=== PATIENT | male | born 1980 | race Caucasian/White ===

== ENCOUNTER 2016-08-28 00:43 | Emergency (ER) | payer SELFPAY ==
[~2016-08-28] VITALS: Ht 182.9 cm; Wt 75.0 kg
[~2016-08-28 00:43] MED LIST: PERC5TAB12 PO
[2016-08-28] MEDS ORDERED: SODIUM CHLOR 0.9% 1000 ML INJ 1,000 ML IV ONE (01:20)
[2016-08-28] MEDS ORDERED: SODIUM CHLORIDE 0.9% FLUSH 10 ML FLUSH IVF PRN (01:30)
[2016-08-28] MEDS ORDERED: LORazepam 2 MG/ML VIAL IVP ONE (01:30)
[2016-08-28 01:40] VITALS: BP 133/75; PULSE 75; RESP 16; TEMP 98.3; O2SAT 96
[2016-08-28 01:43] LABS: AUTOMATED NEUTROPHIL # 4.5 TH/MM3 (1.8-7.7); BASOPHIL % 0.4 % (0.0-2.0); EOSINOPHIL # 0.2 TH/MM3 (0-0.4); EOSINOPHIL % 3.1 % (0.0-4.0); HEMATOCRIT 43.3 % (39.0-51.0); HEMO FLAGS DIFF FINAL; LYMPH % 33.4 % (9.0-44.0); LYMPHOCYTE # 2.6 TH/MM3 (1.0-4.8); MEAN CELL VOLUME 84.1 FL (80.0-100.0); MEAN CORPUSCULAR HEMOGLOBIN 28.4 PG (27.0-34.0); MEAN CORPUSCULAR HGB CONC 33.7 % (32.0-36.0); MONO % 5.3 % (0.0-8.0); NEUT % 57.8 % (16.0-70.0); PLATELET COUNT 213 TH/MM3 (150-450); RED BLOOD COUNT 5.15 MIL/MM3 (4.50-5.90); WHITE BLOOD COUNT 7.8 TH/MM3 (4.0-11.0)
[2016-08-28 01:57] VITALS: RESP 20
[2016-08-28 01:57] LABS: ANION GAP 5 MEQ/L (5-15); BICARBONATE 29.3 MEQ/L (21.0-32.0); BLOOD UREA NITROGEN 13 MG/DL (7-18); CHLORIDE 108 MEQ/L (98-107); GLOMERULAR FILTRATION RATE 86 ML/MIN (>89); POTASSIUM 4.1 MEQ/L (3.5-5.1); SODIUM (NA) 142 MEQ/L (136-145)
[2016-08-28 02:16] LABS: AMPHETAMINE, URINE POS (NEG); BARBITURATES, URINE NEG (NEG); COCAINE, URINE NEG (NEG)
--- NOTE | 2016-08-28 02:59 | PD ---
HPI Chief Complaint: Alcohol/Drug Intoxication Time Seen by Provider: 01:20 Travel History International Travel<30 days: No Contact w/Intl Traveler<30days: No Traveled to known affect area: No History of Present Illness HPI 36-year-old male arrives after abusing drugs intravenously including methamphetamines and opioids. He was found intoxicated in public and arrives as a [place]. He has no medical complaint tonight. Location neuropsychiatric. Severity moderate. He has no homicidal or suicidal ideation. PFSH Past Medical History Bipolar Disorder: Yes Anxiety: Yes Depression: Yes Diminished Hearing: No Immunizations Current: Yes Tetanus Vaccination: > 5 Years Influenza Vaccination: No Social History Alcohol Use: Yes (BINGE DRINKING AT LEAST ONCE A WEEK) Tobacco Use: Yes (1/2 PPD) Substance Use: Yes (ETOH increasing; Nicotine 0.5PPD; Crack Cocaine.) Allergies-Medications (Allergen,Severity, Reaction): Coded Allergies: No Known Allergies (Verified , 08/28/16) Reported Meds & Prescriptions Reported Meds & Active Scripts Active Review of Systems Except as stated in HPI: all other systems reviewed are Neg General / Constitutional: No: Fever Psychiatric: Positive: Substance Abuse Physical Exam Narrative GENERAL: 36-year-old male well-nourished well-developed mildly agitated SKIN: Focused skin assessment warm/dry. IV drug abuse track sheehan in the antecubital fossa on the right side. HEAD: Atraumatic. Normocephalic. EYES: Pupils equal and round. No scleral icterus. No injection or drainage. ENT: No nasal bleeding or discharge. Mucous membranes pink and moist. NECK: Trachea midline. No JVD. CARDIOVASCULAR: Regular rate and rhythm. There is no murmur. RESPIRATORY: No accessory muscle use. Clear to auscultation. Breath sounds equal bilaterally. GASTROINTESTINAL: Abdomen soft, non-tender, nondistended. Hepatic and splenic margins not palpable. MUSCULOSKELETAL: No obvious deformities. No clubbing. No cyanosis. No edema. NEUROLOGICAL: Awake and alert. No obvious cranial nerve deficits. Motor grossly within normal limits. Normal speech. PSYCHIATRIC: Well-nourished well-developed. Cooperative. Data Data Last Documented VS Vital Signs Date Time Temp Pulse Resp B/P Pulse Ox O2 Delivery O2 Flow Rate FiO2 08/28/16 01:57 20 08/28/16 01:40 98.3 75 133/75 96 Vital signs reviewed Orders Basic Metabolic Panel (Bmp) (08/28/16 01:20) Complete Blood Count With Diff (08/28/16 01:20) Iv Access Insert/Monitor (08/28/16 01:20) Cath For Specimen (08/28/16 01:20) Ecg Monitoring (08/28/16 01:20) Oximetry (08/28/16 01:20) Lorazepam Inj (Ativan Inj) (08/28/16 01:30) Sodium Chloride 0.9% Flush (Ns Flush) (08/28/16 01:30) Sodium Chlor 0.9% 1000 Ml Inj (Ns 1000 M (08/28/16 01:20) Drug Screen, Random Urine (08/28/16 01:20) Alcohol (Ethanol) (08/28/16 01:20) Labs Laboratory Tests Test 08/28/16 08/28/16 01:30 01:50 White Blood Count 7.8 TH/MM3 Red Blood Count 5.15 MIL/MM3 Hemoglobin 14.6 GM/DL Hematocrit 43.3 % Mean Corpuscular Volume 84.1 FL Mean Corpuscular Hemoglobin 28.4 PG Mean Corpuscular Hemoglobin 33.7 % Concent Red Cell Distribution Width 12.0 % Platelet Count 213 TH/MM3 Mean Platelet Volume 7.1 FL Neutrophils (%) (Auto) 57.8 % Lymphocytes (%) (Auto) 33.4 % Monocytes (%) (Auto) 5.3 % Eosinophils (%) (Auto) 3.1 % Basophils (%) (Auto) 0.4 % Neutrophils # (Auto) 4.5 TH/MM3 Lymphocytes # (Auto) 2.6 TH/MM3 Monocytes # (Auto) 0.4 TH/MM3 Eosinophils # (Auto) 0.2 TH/MM3 Basophils # (Auto) 0.0 TH/MM3 CBC Comment DIFF FINAL Differential Comment Sodium Level 142 MEQ/L Potassium Level 4.1 MEQ/L Chloride Level 108 MEQ/L Carbon Dioxide Level 29.3 MEQ/L Anion Gap 5 MEQ/L Blood Urea Nitrogen 13 MG/DL Creatinine 0.99 MG/DL Estimat Glomerular Filtration 86 ML/MIN Rate Random Glucose 91 MG/DL Calcium Level 8.4 MG/DL Ethyl Alcohol Level LESS THAN 3 MG/DL Urine Opiates Screen POS Urine Barbiturates Screen NEG Urine Amphetamines Screen POS Urine Benzodiazepines Screen POS Urine Cocaine Screen NEG Urine Cannabinoids Screen POS MDM Medical Decision Making Medical Screen Exam Complete: Yes Emergency Medical Condition: Yes Medical Record Reviewed: Yes Differential Diagnosis Opioids, amphetamines, alcohol abuse, marijuana abuse, electrolyte imbalance Narrative Course CBC & BMP Diagram 08/28/16 01:30 Urine drug screen is positive for amphetamines opioids and benzodiazepines and cannabinoids Alcohol is negative Patient has no medical complaint. He has received IV fluids and Ativan. He has been rest comfortably in the ER. There is no murmur and I doubt the patient has endocarditis although ultimately he may develop valvular disease from continued IV drug abuse. Patient ready for discharge. Diagnosis Primary Impression: IVDU (intravenous drug user) Additional Impression: Polysubstance abuse Referrals: [facility] days Additional Instructions: You have a choice when it comes to health care, and we are glad that you chose [facility]. Hopefully, we have met your expectations on today's visit. You are welcome to return to [facility] at any time, as we are committed to meeting the health care needs of our community. Med/Other Pt SpecificInfo: No Change to Meds Disposition: 01 DISCHARGE HOME Condition: Otto Warner MD Aug 28, 2016 02:59
[2016-08-28 03:58] VITALS: BP 111/64; PULSE 56; RESP 15; O2SAT 99
== END 2016-08-28 06:19 | disposition home or self-care (01) ==
LOC: NEPE 00:43
DX: F19.10 Other psychoactive substance abuse, uncomplicated (principal); F17.200 Nicotine dependence, unspecified, uncomplicated; Z86.59 Personal history of other mental and behavioral disorders
CPT/HCPCS: 80048; 80307; 85025; 99284; J7030

== ENCOUNTER 2017-07-05 00:59 | Emergency (ER) | payer SELFPAY ==
[~2017-07-05] VITALS: Ht 177.8 cm; Wt 80.0 kg
[2017-07-05 01:27] VITALS: BP 113/55; PULSE 50; RESP 16; TEMP 98.1; O2SAT 98
[2017-07-05] MEDS ORDERED: SODIUM CHLOR 0.9% 1000 ML INJ 1,000 ML IV ONE (01:27)
[2017-07-05] MEDS ORDERED: SODIUM CHLORIDE 0.9% FLUSH 10 ML FLUSH IVF PRN (01:30)
[2017-07-05 01:32] VITALS: O2SAT 100
[2017-07-05 01:48] LABS: AUTOMATED NEUTROPHIL # 3.3 TH/MM3 (1.8-7.7); BASOPHIL % 0.5 % (0.0-2.0); EOSINOPHIL # 0.2 TH/MM3 (0-0.4); HEMATOCRIT 42.8 % (39.0-51.0); HEMOGLOBIN 14.6 GM/DL (13.0-17.0); LYMPH % 44.6 % (9.0-44.0); LYMPHOCYTE # 3.3 TH/MM3 (1.0-4.8); MEAN CELL VOLUME 86.5 FL (80.0-100.0); MEAN CORPUSCULAR HEMOGLOBIN 29.6 PG (27.0-34.0); MEAN CORPUSCULAR HGB CONC 34.2 % (32.0-36.0); MEAN PLATELET VOLUME 7.1 FL (7.0-11.0); MONO % 7.3 % (0.0-8.0); MONOCYTE # 0.5 TH/MM3 (0-0.9); NEUT % 44.6 % (16.0-70.0); PLATELET COUNT 257 TH/MM3 (150-450); RED BLOOD COUNT 4.96 MIL/MM3 (4.50-5.90); RED CELL DISTRIBUTION WIDTH 12.8 % (11.6-17.2); WHITE BLOOD COUNT 7.3 TH/MM3 (4.0-11.0)
[2017-07-05 01:59] LABS: PROTHROMBIN TIME - PATIENT 10.2 SEC (9.8-11.6)
[2017-07-05 02:04] LABS: ALBUMIN 3.4 GM/DL (3.4-5.0); ALT (GPT) 43 U/L (12-78); AST (GOT) 23 U/L (15-37); BICARBONATE 28.2 MEQ/L (21.0-32.0); BLOOD UREA NITROGEN 16 MG/DL (7-18); CALCIUM 8.4 MG/DL (8.5-10.1); CHLORIDE 110 MEQ/L (98-107); CREATININE 1.28 MG/DL (0.60-1.30); GLOMERULAR FILTRATION RATE 64 ML/MIN (>89); GLUCOSE,RANDOM 98 MG/DL (74-106); SODIUM (NA) 142 MEQ/L (136-145)
[2017-07-05 02:08] LABS: ACETAMINOPHEN LESS THAN 2.0 MCG/ML (10.0-30.0); ALKALINE PHOSPHATASE 74 U/L (45-117); TOTAL BILIRUBIN ADULT 0.4 MG/DL (0.2-1.0); TOTAL PROTEIN 7.1 GM/DL (6.4-8.2)
[2017-07-05 02:10] LABS: BILIRUBIN, URINE NEG (NEG); BLOOD, URINE NEG (NEG); GLUCOSE,URINE NEG (NEG); HYALINE CAST, URINE 3 /lpf (RARE); KETONE, URINE NEG (NEG); MUCUS URINE FEW /lpf (OCC); NITRITE,URINE NEG (NEG); URINE COLOR YELLOW (YELLW/STRAW); URINE LEUKOCYTE ESTERASE NEG (NEG)
--- NOTE | 2017-07-05 02:11 | RADRPT ---
EXAM DATE/TIME: 07/05/2017 01:39 [facility] COMPARISON: No previous studies available for comparison. INDICATIONS : Short of breath. MEDICAL HISTORY : None. SURGICAL HISTORY : None. ENCOUNTER: Initial ACUITY: 1 day PAIN SCORE: 0/10 LOCATION: Bilateral chest FINDINGS: A single view of the chest demonstrates the lungs to be symmetrically aerated without evidence of mas s, infiltrate or effusion. The cardiomediastinal contours are unremarkable. Osseous structures are intact. CONCLUSION: 1. No acute cardiopulmonary disease. Rohan So MD on July 05, 2017 at 2:09 Board Certified Radiologist. This report was verified electronically.
--- NOTE | 2017-07-05 03:03 | RADRPT ---
EXAM DATE/TIME: 07/05/2017 02:20 [facility] COMPARISON: No previous studies available for comparison. INDICATIONS : Altered mental status. RADIATION DOSE: 64.63 CTDIvol (mGy) MEDICAL HISTORY : None SURGICAL HISTORY : None. ENCOUNTER: Initial ACUITY: 1 day PAIN SCALE: 0/10 LOCATION: cranial TECHNIQUE: Multiple contiguous axial images were obtained of the head. Using automated exposure control and adj ustment of the mA and/or kV according to patient size, radiation dose was kept as low as reasonably a chievable to obtain optimal diagnostic quality images. DICOM format image data is available electro nically for review and comparison. FINDINGS: CEREBRUM: The ventricles are normal for age. No evidence of midline shift, mass lesion, hemorrhage or acute in farction. No extra-axial fluid collections are seen. POSTERIOR FOSSA: The cerebellum and brainstem are intact. The 4th ventricle is midline. The cerebellopontine angle i s unremarkable. EXTRACRANIAL: The visualized portion of the orbits is intact. Small mucous retention cyst in the inferior left maxi llary sinus. SKULL: The calvaria is intact. No evidence of skull fracture. CONCLUSION: 1. No acute intracranial abnormality. Rohan So MD on July 05, 2017 at 3:01 Board Certified Radiologist. This report was verified electronically.
--- NOTE | 2017-07-05 03:20 | PD ---
HPI Chief Complaint: OD/ Ingestion Time Seen by Provider: : Travel History International Travel<30 days: No Contact w/Intl Traveler<30days: No Traveled to known affect area: No History of Present Illness HPI 37-year-old male presents to the emergency department by EMS transport from from [place] where he was found unresponsive in his car with his girlfriend. Girlfriend refused transport. Patient was administered 1.2 mg of Narcan with minimal response. Patient admits to taking heroin. PFSH Past Medical History Narrative Medical Bipolar disorder anxiety depression substance use nursing notes reviewed Bipolar Disorder: Yes Anxiety: Yes Depression: Yes Diminished Hearing: No Immunizations Current: Yes Tetanus Vaccination: < 5 Years Influenza Vaccination: No Past Surgical History Surgical History: No Previous Surgery Social History Alcohol Use: Yes (BINGE DRINKING AT LEAST ONCE A WEEK) Tobacco Use: Yes (1/2 PPD) Substance Use: Yes (ETOH increasing; Nicotine 0.5PPD; Crack Cocaine.HEROIN) Allergies-Medications (Allergen,Severity, Reaction): Coded Allergies: No Known Allergies (Verified Adverse Reaction, Unknown, 07/05/17) Reported Meds & Prescriptions Reported Meds & Active Scripts Active Review of Systems Except as stated in HPI: all other systems reviewed are Neg Physical Exam Narrative GENERAL: Well-developed malnourished solid male in no respiratory distress; GCS 13 SKIN: Warm and dry. HEAD: Normocephalic. EYES: No scleral icterus. No injection or drainage. NECK: Supple, trachea midline. No JVD or lymphadenopathy. CARDIOVASCULAR: Regular rate and rhythm without murmurs, gallops, or rubs. RESPIRATORY: Breath sounds equal bilaterally. No accessory muscle use. GASTROINTESTINAL: Abdomen soft, non-tender, nondistended. MUSCULOSKELETAL: No cyanosis, or edema. BACK: Nontender without obvious deformity. No CVA tenderness. Data Data Last Documented VS Vital Signs Date Time Temp Pulse Resp B/P (MAP) Pulse Ox O2 Delivery O2 Flow Rate FiO2 07/05/17 01:32 100 Nasal Cannula 2.00 07/05/17 01:27 98.1 50 16 113/55 (74) Orders Orders Electrocardiogram (07/05/17 01:27) Complete Blood Count With Diff (07/05/17 01:27) Comprehensive Metabolic Panel (07/05/17 01:27) Prothrombin Time / Inr (Pt) (07/05/17:27) Act Partial Throm Time (Ptt) (07/05/17:27) Urinalysis - C+S If Indicated (07/05/17:27) Chest, Single Ap (07/05/17:27) Ct Brain W/O Iv Contrast(Rout) (07/05/17:27) Blood Glucose (07/05/17:27) Iv Access Insert/Monitor (07/05/17:) Ecg Monitoring (07/05/17) Oximetry (07/05/17:27) Sodium Chloride 0.9% Flush (Ns Flush) (07/05/17 01:30) Sodium Chlor 0.9% 1000 Ml Inj (Ns 1000 M (07/05/17:) Drug Screen, Random Urine (07/05/17:27) Alcohol (Ethanol) (07/05/17:27) Salicylates (Aspirin) (07/05/17:) Tylenol (Acetaminophen) (07/05/17:) Ed Discharge Order (07/05/17 03:28) Labs Laboratory Tests Test 07/05/17 01:40 07/05/17 01:50 White Blood Count 7.3 TH/MM3 Red Blood Count 4.96 MIL/MM3 Hemoglobin 14.6 GM/DL Hematocrit 42.8 % Mean Corpuscular Volume 86.5 FL Mean Corpuscular Hemoglobin 29.6 PG Mean Corpuscular Hemoglobin Concent 34.2 % Red Cell Distribution Width 12.8 % Platelet Count 257 TH/MM3 Mean Platelet Volume 7.1 FL Neutrophils (%) (Auto) 44.6 % Lymphocytes (%) (Auto) 44.6 % Monocytes (%) (Auto) 7.3 % Eosinophils (%) (Auto) 3.0 % Basophils (%) (Auto) 0.5 % Neutrophils # (Auto) 3.3 TH/MM3 Lymphocytes # (Auto) 3.3 TH/MM3 Monocytes # (Auto) 0.5 TH/MM3 Eosinophils # (Auto) 0.2 TH/MM3 Basophils # (Auto) 0.0 TH/MM3 CBC Comment DIFF FINAL Differential Comment Prothrombin Time 10.2 SEC Prothromb Time International Ratio 1.0 RATIO Activated Partial Thromboplast Time 25.9 SEC Blood Urea Nitrogen 16 MG/DL Creatinine 1.28 MG/DL Random Glucose 98 MG/DL Total Protein 7.1 GM/DL Albumin 3.4 GM/DL Calcium Level 8.4 MG/DL Alkaline Phosphatase 74 U/L Aspartate Amino Transf (AST/SGOT) 23 U/L Alanine Aminotransferase (ALT/SGPT) 43 U/L Total Bilirubin 0.4 MG/DL Sodium Level 142 MEQ/L Potassium Level 3.9 MEQ/L Chloride Level 110 MEQ/L Carbon Dioxide Level 28.2 MEQ/L Anion Gap 4 MEQ/L Estimat Glomerular Filtration Rate 64 ML/MIN Salicylates Level LESS THAN 1.7 MG/DL Acetaminophen Level LESS THAN 2.0 MCG/ML Ethyl Alcohol Level LESS THAN 3 MG/DL Urine Color YELLOW Urine Turbidity CLEAR Urine pH 6.0 Urine Specific [place] 1.022 Urine Protein NEG mg/dL Urine Glucose (UA) NEG mg/dL Urine Ketones NEG mg/dL Urine Occult Blood NEG Urine Nitrite NEG Urine Bilirubin NEG Urine Urobilinogen LESS THAN 2.0 MG/DL Urine Leukocyte Esterase NEG Urine RBC 1 /hpf Urine WBC LESS THAN 1 /hpf Urine Hyaline Casts 3 /lpf Urine Mucus FEW /lpf Microscopic Urinalysis Comment CULT NOT INDICATED Urine Opiates Screen NEG Urine Barbiturates Screen NEG Urine Amphetamines Screen POS Urine Benzodiazepines Screen NEG Urine Cocaine Screen NEG Urine Cannabinoids Screen NEG MDM Medical Decision Making Medical Screen Exam Complete: Yes Emergency Medical Condition: Yes Medical Record Reviewed: Yes Interpretation(s) Last Impressions Head CT 07/05/17126 Signed Impressions: Service Date/Time: Wednesday, July 05, 2017 02:20 - CONCLUSION: 1. No acute intracranial abnormality. Rohan So MD Chest X-Ray 07/05/17126 Signed Impressions: Service Date/Time: Wednesday, July 05, 2017 01:39 - CONCLUSION: 1. No acute cardiopulmonary disease. Rohan So MD CBC & BMP Diagram 07/05/17 01:40 Total Protein 7.1, Albumin 3.4, Calcium Level 8.4 L, Alkaline Phosphatase 74, Aspartate Amino Transf (AST/SGOT) 23, Alanine Aminotransferase (ALT/SGPT) 43, Total Bilirubin 0.4 Vital Signs Date Time Temp Pulse Resp B/P (MAP) Pulse Ox O2 Delivery O2 Flow Rate FiO2 07/05/17 01:32 100 Nasal Cannula 2.00 07/05/17 01:27 98.1 50 16 113/55 (63) 53 Differential Diagnosis Polysubstance ingestion, heroin overdose,Mood disorder, depression, alcohol intoxication, minor closed head injury Narrative Course Patient placed on case monitor IV access obtained specimens collected and sent for resulting imaging studies ordered Patient resting comfortably voicing no concerns or complaints At 3:20 AM patient has been monitored for 2 hours in the emergency department he has had no recurrence of any depression of his mentation patient has been cooperative workup has identified patient have amphetamines in his system and no acute abnormality otherwise identified at this point time I was asked that was placed on the patient by me in order to evaluate and monitor the patient in the emergency department will be lifted. Patient is not suicidal or homicidal. Patient is stable for outpatient management is encouraged strongly to avoid substance use. Diagnosis Primary Impression: Polysubstance abuse Referrals: [facility] day Patient Instructions: General Instructions Additional Instructions: Discontinue substance use/abuse Follow-up with [facility] for detox resources Return to the emergency department for any concerns or change in condition Disposition: 01 DISCHARGE HOME Condition: Stable Marysol Moya MD Jul 05, 2017 03:20
--- NOTE | 2017-07-05 22:15 | EKG ---
Date Performed: 07/05/2017 Time Performed: 01:33:06 PTAGE: 37 years EKG: SINUS BRADYCARDIA BORDERLINE ECG NO PREVIOUS TRACING DOCTOR: Sukhi Hoyt Interpretating Date/Time 07/05/2017 22:13:28
== END 2017-07-05 03:53 | disposition home or self-care (01) ==
LOC: NEPC 00:59
DX: T40.1X1A Poisoning by heroin, accidental (unintentional), initial encounter (principal); F19.10 Other psychoactive substance abuse, uncomplicated; F31.9 Bipolar disorder, unspecified; F41.9 Anxiety disorder, unspecified; F17.200 Nicotine dependence, unspecified, uncomplicated; R00.1 Bradycardia, unspecified
CPT/HCPCS: 70450; 71045; 80053; 80307; 81001; 85025; 85610; 85730; 93005; 99285; J7030

== ENCOUNTER 2017-07-06 18:39 | Emergency (ER) | payer OTHER ==
[~2017-07-06] VITALS: Ht 177.8 cm; Wt 78.0 kg
[2017-07-06 18:43] VITALS: BP 129/66; PULSE 71; RESP 14; O2SAT 97
[2017-07-06 18:45] VITALS: TEMP 97.7
[2017-07-06] MEDS ORDERED: SODIUM CHLOR 0.9% 1000 ML INJ 1,000 ML IV ONE (18:48)
[2017-07-06 18:50] VITALS: O2SAT 98
[2017-07-06] MEDS ORDERED: SODIUM CHLORIDE 0.9% FLUSH 10 ML FLUSH IVF PRN (19:00)
--- NOTE | 2017-07-06 19:00 | PD ---
HPI Chief Complaint: Alcohol/Drug Intoxication Time Seen by Provider: 18:48 Travel History International Travel<30 days: No Contact w/Intl Traveler<30days: No Traveled to known affect area: No History of Present Illness HPI 37-year-old male patient with history of polysubstance abuse, presents to the ER brought in by EMS because he had a verbal argument with the had reportedly taken methamphetamines and girlfriend, and heroin at around 10 AM, looked lethargic according to EMS, and his breathing was slowing down, they had to give him Narcan. He is currently lethargic in the ER but arousable and answering questions. He denies any injuries or any other issues. Modifying Factors: None Associated Signs & Symptoms: Polysubstance use, lethargy Risk Factors: Opiate abuse PFSH Past Medical History Bipolar Disorder: Yes Anxiety: Yes Depression: Yes Diminished Hearing: No Immunizations Current: Yes Myocardial Infarction: Yes Social History Alcohol Use: Yes Tobacco Use: Yes (/2 PPD) Substance Use: Yes (HEROIN AND METH) Allergies-Medications (Allergen,Severity, Reaction): Coded Allergies: No Known Allergies (Verified Adverse Reaction, Unknown, 07/06/17) Reported Meds & Prescriptions Reported Meds & Active Scripts Active No Active Prescriptions or Reported Medications Review of Systems Except as stated in HPI: all other systems reviewed are Neg Physical Exam Narrative GENERAL: Well-developed young male patient currently and mild distress. Awake but lethargic, arousable and oriented 3. SKIN: Focused skin assessment warm/dry. HEAD: Atraumatic. Normocephalic. EYES: Pupils equal and round. No scleral icterus. No injection or drainage. ENT: No nasal bleeding or discharge. Mucous membranes pink and moist. NECK: Trachea midline. No JVD. Supple. CARDIOVASCULAR: Regular rate and rhythm. No murmur appreciated. RESPIRATORY: No accessory muscle use. Clear to auscultation. Breath sounds equal bilaterally. GASTROINTESTINAL: Abdomen soft, non-tender, nondistended. Hepatic and splenic margins not palpable. MUSCULOSKELETAL: No obvious deformities. No clubbing. No cyanosis. No edema. NEUROLOGICAL: Awake and alert. No obvious cranial nerve deficits. Motor grossly within normal limits. Normal speech. PSYCHIATRIC: Appropriate mood and affect; insight and judgment normal. Data Data Last Documented VS Vital Signs Date Time Temp Pulse Resp B/P (MAP) Pulse Ox O2 Delivery O2 Flow Rate FiO2 2/28/18 22:10 51 14 115/62 (79) 96 Nasal Cannula 07/06/17 21:10 2.00 07/06/17 18:45 97.7 Orders Orders Electrocardiogram (07/06/17 18:48) Complete Blood Count With Diff (07/06/17 18:48) Comprehensive Metabolic Panel (07/06/17 18:48) Iv Access Insert/Monitor (07/06/17 18:48) Cath For Specimen (07/06/17 18:48) Ecg Monitoring (07/06/17 18:48) Oximetry (07/06/17 18:48) Sodium Chloride 0.9% Flush (Ns Flush) (07/06/17 19:00) Sodium Chlor 0.9% 1000 Ml Inj (Ns 1000 M (07/06/17 18:48) Drug Screen, Random Urine (07/06/17 18:48) Alcohol (Ethanol) (07/06/17 18:48) Ed Discharge Order (07/07/17 00:18) Labs Laboratory Tests Test 07/06/17 19:00 07/06/17 19:10 White Blood Count 7.0 TH/MM3 Red Blood Count 5.28 MIL/MM3 Hemoglobin 15.6 GM/DL Hematocrit 45.3 % Mean Corpuscular Volume 85.8 FL Mean Corpuscular Hemoglobin 29.6 PG Mean Corpuscular Hemoglobin Concent 34.5 % Red Cell Distribution Width 12.8 % Platelet Count 281 TH/MM3 Mean Platelet Volume 7.8 FL Neutrophils (%) (Auto) 58.1 % Lymphocytes (%) (Auto) 34.3 % Monocytes (%) (Auto) 5.8 % Eosinophils (%) (Auto) 1.5 % Basophils (%) (Auto) 0.3 % Neutrophils # (Auto) 4.1 TH/MM3 Lymphocytes # (Auto) 2.4 TH/MM3 Monocytes # (Auto) 0.4 TH/MM3 Eosinophils # (Auto) 0.1 TH/MM3 Basophils # (Auto) 0.0 TH/MM3 CBC Comment DIFF FINAL Differential Comment Blood Urea Nitrogen 17 MG/DL Creatinine 1.25 MG/DL Random Glucose 157 MG/DL Total Protein 7.8 GM/DL Albumin 3.9 GM/DL Calcium Level 8.8 MG/DL Alkaline Phosphatase 82 U/L Aspartate Amino Transf (AST/SGOT) 39 U/L Alanine Aminotransferase (ALT/SGPT) 43 U/L Total Bilirubin 0.7 MG/DL Sodium Level 139 MEQ/L Potassium Level 3.4 MEQ/L Chloride Level 104 MEQ/L Carbon Dioxide Level 28.1 MEQ/L Anion Gap 7 MEQ/L Estimat Glomerular Filtration Rate 65 ML/MIN Ethyl Alcohol Level LESS THAN 3 MG/DL Urine Opiates Screen POS Urine Barbiturates Screen NEG Urine Amphetamines Screen POS Urine Benzodiazepines Screen NEG Urine Cocaine Screen NEG Urine Cannabinoids Screen NEG MDM Medical Decision Making Medical Screen Exam Complete: Yes Emergency Medical Condition: Yes Medical Record Reviewed: Yes Interpretation(s) Laboratory Tests Test 07/06/17 19:00 07/06/17 19:10 Random Glucose 157 MG/DL (74-106) Aspartate Amino Transf (AST/SGOT) 39 U/L (15-37) Potassium Level 3.4 MEQ/L (3.5-5.1) Estimat Glomerular Filtration Rate 65 ML/MIN (>89) Urine Opiates Screen POS (NEG) Urine Amphetamines Screen POS (NEG) Differential Diagnosis Opiate overdose versus polysubstance abuse Narrative Course Vital signs are stable in the ER. Lab work shows that he is positive for opiates and methamphetamines. He rested in the ER for several hours and was observed on telemetry. He appears to be doing well and after almost 6 hours of observation, patient is released with PD. Return for any new issues as needed. The plan was discussed with the patient he states understanding. Diagnosis Primary Impression: Polysubstance abuse Scripts No Active Prescriptions or Reported Meds Disposition: [address] LAW ENFORCEMNT Condition: Stable Leah Cross MD Jul 06, 2017 19:00
[2017-07-06 19:53] LABS: AUTOMATED NEUTROPHIL # 4.1 TH/MM3 (1.8-7.7); BASOPHIL % 0.3 % (0.0-2.0); EOSINOPHIL # 0.1 TH/MM3 (0-0.4); EOSINOPHIL % 1.5 % (0.0-4.0); HEMATOCRIT 45.3 % (39.0-51.0); HEMOGLOBIN 15.6 GM/DL (13.0-17.0); LYMPH % 34.3 % (9.0-44.0); LYMPHOCYTE # 2.4 TH/MM3 (1.0-4.8); MEAN CELL VOLUME 85.8 FL (80.0-100.0); MEAN CORPUSCULAR HEMOGLOBIN 29.6 PG (27.0-34.0); MEAN CORPUSCULAR HGB CONC 34.5 % (32.0-36.0); MEAN PLATELET VOLUME 7.8 FL (7.0-11.0); MONO % 5.8 % (0.0-8.0); MONOCYTE # 0.4 TH/MM3 (0-0.9); NEUT % 58.1 % (16.0-70.0); PLATELET COUNT 281 TH/MM3 (150-450); RED BLOOD COUNT 5.28 MIL/MM3 (4.50-5.90); RED CELL DISTRIBUTION WIDTH 12.8 % (11.6-17.2)
[2017-07-06 20:10] VITALS: BP 117/64; PULSE 68; RESP 22; O2SAT 99
[2017-07-06 20:26] LABS: ALT (GPT) 43 U/L (12-78)
[2017-07-06 20:27] LABS: ALBUMIN 3.9 GM/DL (3.4-5.0); AST (GOT) 39 U/L (15-37); BICARBONATE 28.1 MEQ/L (21.0-32.0); BLOOD UREA NITROGEN 17 MG/DL (7-18); CALCIUM 8.8 MG/DL (8.5-10.1); CHLORIDE 104 MEQ/L (98-107); CREATININE 1.25 MG/DL (0.60-1.30); GLOMERULAR FILTRATION RATE 65 ML/MIN (>89); GLUCOSE,RANDOM 157 MG/DL (74-106); SODIUM (NA) 139 MEQ/L (136-145)
[2017-07-06 20:28] LABS: ALKALINE PHOSPHATASE 82 U/L (45-117); TOTAL BILIRUBIN ADULT 0.7 MG/DL (0.2-1.0); TOTAL PROTEIN 7.8 GM/DL (6.4-8.2)
[2017-07-06 21:10] VITALS: BP 116/61; PULSE 56; RESP 16; O2SAT 95
[2017-07-06 22:10] VITALS: BP 115/62; PULSE 51; RESP 14; O2SAT 96
--- NOTE | 2017-07-07 11:33 | EKG ---
Date Performed: 07/06/2017 Time Performed: 18:59:09 PTAGE: 37 years EKG: Sinus rhythm WITH SINUS ARRHYTHMIA NORMAL ECG PREVIOUS TRACING : 07/05/2017 01.33 Since the prior tracing, there has been no significant rico DOCTOR: Lola Escalante Interpretating Date/Time 07/07/2017 11:30:19
== END 2017-07-07 01:37 ==
LOC: NEPD 18:39
DX: F19.10 Other psychoactive substance abuse, uncomplicated (principal); R53.83 Other fatigue; F31.9 Bipolar disorder, unspecified; F11.10 Opioid abuse, uncomplicated; F15.10 Other stimulant abuse, uncomplicated; Z72.0 Tobacco use; Z79.899 Other long term (current) drug therapy
CPT/HCPCS: 80053; 80307; 85025; 93005; 96360; 99284; J7030